=== PATIENT | male | born 1950 | race Caucasian/White ===

== ENCOUNTER → 2017-12-20 | Outpatient (CLI) | payer MEDICARE ==
[~2017-12-20] MED LIST: ASPI81TA81 PO; ATOR20TA15 PO; CLOP75TA PO; LOSA100T PO; METO25TA3 PO
--- NOTE | 2017-12-20 12:00 | RADRPT ---
EXAM DATE/TIME: 12/20/2017 11:41 [place] COMPARISON: No previous studies available for comparison. INDICATIONS : Evaluate for pneumonia, pneumothorax, or communicable disease. Pre op for left carotid bypass. MEDICAL HISTORY : Cardiovascular disease. SURGICAL HISTORY : Carotid endarterectomy. Coronary artery stent. ENCOUNTER: Initial ACUITY: 1 day PAIN SCORE: 0/10 LOCATION: Bilateral chest FINDINGS: PA and lateral views of the chest demonstrate the lungs to be symmetrically aerated without evidence of mass, infiltrate or effusion. The cardiomediastinal contours are unremarkable. Osseous structure s are intact. CONCLUSION: No acute disease. Harman Vickers MD on December 20, 2017 at 11:57 Board Certified Radiologist. This report was verified electronically.
[2017-12-20 12:11] LABS: BILIRUBIN, URINE NEG (NEG); BLOOD, URINE NEG (NEG); GLUCOSE,URINE NEG (NEG); KETONE, URINE NEG (NEG); NITRITE,URINE NEG (NEG); URINE COLOR LIGHT-YELLOW (YELLW/STRAW); URINE LEUKOCYTE ESTERASE NEG (NEG)
[2017-12-20 12:15] LABS: AUTOMATED NEUTROPHIL # 4.1 TH/MM3 (1.8-7.7); BASOPHIL % 0.6 % (0.0-2.0); EOSINOPHIL # 0.1 TH/MM3 (0-0.4); EOSINOPHIL % 2.1 % (0.0-4.0); HEMATOCRIT 40.8 % (39.0-51.0); HEMOGLOBIN 13.9 GM/DL (13.0-17.0); LYMPH % 23.7 % (9.0-44.0); LYMPHOCYTE # 1.5 TH/MM3 (1.0-4.8); MEAN CELL VOLUME 94.5 FL (80.0-100.0); MEAN CORPUSCULAR HEMOGLOBIN 32.2 PG (27.0-34.0); MEAN CORPUSCULAR HGB CONC 34.1 % (32.0-36.0); MEAN PLATELET VOLUME 7.1 FL (7.0-11.0); MONOCYTE # 0.6 TH/MM3 (0-0.9); NEUT % 64.6 % (16.0-70.0); PLATELET COUNT 279 TH/MM3 (150-450); RED BLOOD COUNT 4.32 MIL/MM3 (4.50-5.90); RED CELL DISTRIBUTION WIDTH 13.1 % (11.6-17.2); WHITE BLOOD COUNT 6.4 TH/MM3 (4.0-11.0)
[2017-12-20 12:41] LABS: INTERNATIONAL NORMALIZED RATIO 1.1 RATIO; PROTHROMBIN TIME - PATIENT 10.7 SEC (9.8-11.6)
[2017-12-20 12:54] LABS: BICARBONATE 31.4 MEQ/L (21.0-32.0); CALCIUM 9.4 MG/DL (8.5-10.1); CREATININE 1.06 MG/DL (0.60-1.30)
== END ==
LOC: CPRE 10:40
PROVIDERS: ATTEND Surgery
DX: Z01.811 Encounter for preprocedural respiratory examination (principal); Z01.812 Encounter for preprocedural laboratory examination; I77.9 Disorder of arteries and arterioles, unspecified
CPT/HCPCS: 36415; 71046; 80048; 81001; 85025; 85610; 85730

== ENCOUNTER 2017-12-26 05:31 | Inpatient (IN) | payer MEDICARE ==
[~2017-12-26] VITALS: Ht 182.9 cm; Wt 104.0 kg
[2017-12-26] VITALS (7 sets, daily range): BP systolic 136–161; BP diastolic 66–87; PULSE 68–84; RESP 16–20; TEMP 97.2–99; O2SAT 97–100
[2017-12-26] MEDS ORDERED: CHLORHEXIDINE GLUCONATE 2 % 1 PACK (2 CLOTHS) TOPICAL PRN (06:00)
[2017-12-26] MEDS ORDERED: SODIUM CHLORID 0.9% 500 ML IV PRN (06:00)
[2017-12-26] MEDS ORDERED: METOPROLOL TARTRATE 25 MG TAB PO PRN (06:00)
[2017-12-26] MEDS ORDERED: LACTATED RINGER'S 1000 ML IV PRN (06:00)
[2017-12-26] MEDS ORDERED: POVIDONE IODINE 5% (ANTISEPSIS KIT) 4 APPLICATIONS EACH NARE PRN (06:00)
--- NOTE | 2017-12-26 07:02 | PD.VS.PN ---
Pre-operative Note Pre-operative diagnosis: Recurrent L carotid stenosis after CEA Planned procedure: L CCA-ICA bypass Interval History: Pt has been feeling well, appropriately anxious for surgery but ready. No F/C or other symptoms that would preclude surgery. Labs: Hct 41 plt 279 cr 1.1 INR 1.1 Blood: T&S EKG: no acute ST changes Imaging: CTA ([facility]) frky 09/06/17 reviewed CXR negative for acute disease Orders: NPO Ancef 2g IV OCTOR Post-operative destination: CVICU Operative site marked: Yes Consent: Informed consent has been obtained from Néstor Salter. I have explained the procedure in detail and discussed the risks, benefits, and potential complications. All questions have been answered. Patient contact information: and son are here. Cell phone [phone] Negrito Chaudhry MD Dec 26, 2017 07:01
[2017-12-26] MEDS ORDERED: BUPIVACAINE HCL PF 0.5% 10 ML VIAL ONE (07:14)
[2017-12-26] MEDS ORDERED: HEPARIN SODIUM - IV 10,000 UNITS/10 ML VIAL ONE ×2 (07:14→08:45)
[2017-12-26] MEDS ORDERED: PROTAMINE SULFATE 50 MG/5 ML VIAL ONE ×2 (07:14→08:45)
[2017-12-26] MEDS ORDERED: HEPARIN-NS/PF INJ 500 ML ONE (07:14)
[2017-12-26] MEDS ORDERED: THROMBIN (TOPICAL) 20,000 UNIT SPRAY KIT ONE ×3 (07:14→09:41)
[2017-12-26] MEDS ORDERED: ceFAZolin 2 GM PREMIX 50 ML ONE (07:48)
--- NOTE | 2017-12-26 10:21 | HHI.PR ---
cc: Negrito Chaudhry MD Immediate Post Op Note Procedure Date: Dec 26, 2017 Pre Op Diagnosis: Recurrent LEFT carotid stenosis Post Op Diagnosis: Recurrent LEFT carotid stenosis Surgeon: Negrito Chaudhry Overcoil Stepper(s): Negrito Ocampo Procedure: L CCA-ICA bypass with 8mm PTFE Findings: scar tissue, high grade stenosis, c/w neointimal hyperplasia no neuro changes by EEG intraoperatively Additional Information: Pt awoke neuro intact Complications: none Specimen(s) removed: none for pathology Estimated blood loss: 150mL Anesthesia: General Drains: None Fluids: 1400mL IVF Urinary Output (mLs): 260 Patient to: CVICU Patient Condition: Good Implant/Devices: SEE IMPLANT LOG (if applicable) Date/Time of Procedure: SEE SURGICAL CARE RECORD Negrito Chaudhry MD Dec 26, 2017 10:21
[2017-12-26] MEDS ORDERED: HYDROmorphone HCL 2 MG TAB PO PRN (10:30)
[2017-12-26] MEDS ORDERED: SENNOSIDES 8.6 MG TAB PO PRN (10:30)
[2017-12-26] MEDS ORDERED: BISACODYL 10 MG SUPP RECTAL PRN (10:30)
[2017-12-26] MEDS ORDERED: MAGNESIUM HYDROXIDE SUSP 30 ML CUP PO PRN (10:30)
[2017-12-26] MEDS ORDERED: LACTULOSE SYRUP 20 GM/30 ML CUP PO PRN (10:30)
[2017-12-26] MEDS ORDERED: MIDAZOLAM HCL 2 MG/2 ML VIAL ONE (10:56)
[2017-12-26] MEDS ORDERED: PROPOFOL 200 MG/20 ML AMP IV ONE (12:00)
[2017-12-26] MEDS ORDERED: ONDANSETRON HCL 4 MG/2 ML VIAL IV ONE (12:00)
[2017-12-26] MEDS ORDERED: NORMOSOL R INJ 1,000 ML IV ONE (12:00)
[2017-12-26] MEDS ORDERED: DEXAMETHASONE SOD PHOS 4 MG/ML VIAL IV ONE (12:00)
[2017-12-26] MEDS ORDERED: SODIUM CHLOR 0.9% 250 ML INJ 250 ML IV ONE (12:00)
[2017-12-26] MEDS ORDERED: hydrALAZINE HCL 20 MG/ML VIAL IV ONE (12:00)
[2017-12-26] MEDS ORDERED: ESMOLOL HCL 100 MG/10 ML VIAL IV ONE (12:00)
[2017-12-26] MEDS ORDERED: GLYCOPYRROLATE 1 MG/5 ML SYRINGE IV PUSH ONE (12:00)
[2017-12-26] MEDS ORDERED: ROCURONIUM INJ 50 MG/5 ML SYRINGE IV PUSH ONE (12:00)
[2017-12-26] MEDS ORDERED: LIDOCAINE HCL 1% PF 5 ML SYRINGE OTHER ONE (12:00)
[2017-12-26] MEDS ORDERED: SODIUM CHLORID 0.9% 500 ML INJ 500 ML IV ONE (12:00)
[2017-12-26] MEDS ORDERED: ePHEDrine/NS 25 MG/5 ML SYRINGE IV ONE (12:00)
[2017-12-26] MEDS ORDERED: PHENYLEPH/NS 1000 MCG/10 ML SYR IV ONE (12:00)
[2017-12-26] MEDS ORDERED: PHENYLEPHRINE HCL 10 MG/ML VIAL IV ONE (12:00)
[2017-12-26] MEDS ORDERED: NEOSTIGMINE 5 MG/5 ML SYRINGE IV PUSH ONE (12:00)
[2017-12-26] MEDS ORDERED: RESP: ALBUTEROL 2.5 MG/IPRATROPIUM 0.5 MG NEB (PRN) NEB (12:45)
--- NOTE | 2017-12-26 12:54 | MB ---
cc: JOHN ELIZABETH M.D. DATE OF CONSULTATION 12/26/2017 DATE OF 1950 REASON FOR CONSULTATION Critical care management HISTORY OF PRESENT ILLNESS The patient is a 67-year-old male with a past medical history of hyperlipidemia, hypertension, coronary artery disease, recurrent left carotid stenosis. The patient underwent left ICA bypass by Dr. Chaudhry earlier today. The patient was transferred to CVICU and critical care medicine was consulted for critical care management. The patient had 150 mL estimated blood loss and was given 1.4 liters of IV fluids. His urine output 260 mL during surgery. When seen, the patient is awake and alert lying comfortable in bed in no acute distress. His current blood pressure 155/72 on the art line and saturation 98%. He denies any chest pain, shortness of breath or any GI symptoms. PAST MEDICAL HISTORY Significant for: 1. Hypertension 2. Hyperlipidemia 3. Coronary artery disease 4. Recurrent left carotid stenosis after a carotid endarterectomy. PAST SURGICAL HISTORY 1. Previous left CEA. 2. Previous coronary stent placement. 3. Previous knee surgery. ALLERGIES NO KNOWN DRUG ALLERGIES. SOCIAL HISTORY Nonsmoker, nondrinker. FAMILY HISTORY Noncontributory to current present illness. MEDICATIONS Reported medications at home include: 1. Plavix. 2. Atorvastatin. 3. Lopressor. 4. Losartan. 5. Aspirin. REVIEW OF SYSTEMS As per HPI. The rest of the review of systems is unremarkable PHYSICAL EXAM This is a 67-year-old male lying in bed in no acute distress. VITAL SIGNS: Temperature 98.4, pulse of 77, blood pressure 155/72, saturation 98%. HEENT: Atraumatic, normocephalic. Pupils equal, round and reactive to light and accommodation. Extraocular muscles intact. Conjunctivae pink. Nonicteric sclerae. Oral mucosa within normal. NECK: Supple. No JVD, adenopathy, thyromegaly. Trachea midline. CARDIOVASCULAR: Regular rate and rhythm. Normal S1-S2. No murmurs, rubs or gallops noted. PULMONARY: Bilateral equal air entry. No rales or wheezing. ABDOMEN: Soft, nontender, no distension. Positive bowel sounds. EXTREMITIES: No cyanosis, clubbing or edema. NEUROLOGIC: No focal sensory deficits. LABORATORY DATA Preop labs from December 20 showed WBC 6.4, hemoglobin 13.9, hematocrit 40, platelet count 279. Sodium 137, potassium 4.6, chloride 102, CO2 31, BUN 12, creatinine 1.06, glucose of 107, calcium 9.4. A chest x-ray from December 20 showed no acute disease. IMPRESSION 1. Recurrent left carotid stenosis status post left ICA bypass. 2. Previous left carotid endarterectomy. 3. Hypertension 4. Hyperlipidemia 5. History of coronary artery disease. RECOMMENDATIONS 1. Monitor neuro status and avoid any sedatives. 2. Continue with Dilaudid 0.2 mg q. 4-hour p.r.n. for pain control. 3. Oxygen p.r.n. to maintain sats above 92%. 4. Place on bronchodilators in the form of DuoNeb q. 6 p.r.n. for shortness of breath. 5. Monitor heart rate and blood pressure closely and maintain MAP greater than 65 mmHg. 6. Continue with cardiac meds which include aspirin 81 mg daily, Plavix 75 mg daily, Lopressor 25 mg daily, Cozaar 100 mg daily. 7. Monitor renal function I's and O's and electrolyte replacement as needed. 8. The patient is on p.o. heart healthy diet and Pepcid 20 mg b.i.d. 9. Monitor for signs of infections which include fever and WBC. 10. Panculture if spikes a fever. He was given a cephazolin dose early this morning preop. 11. Monitor CBC 12. Sliding scale insulin if needed for glycemic control. 13. DVT prophylaxis with SCD's in addition Lovenox 40 mg subcu daily was ordered to start tomorrow. Patient appears hemodynamically stable will sign off if no active issues overnight. MD NACHO Buenrostro/DELFINO /12:24 PM /12:40 PM JUSTIN
[2017-12-26] MEDS: FAMOTIDINE 20 MG TAB PO SCH (20:23)
[2017-12-26] MEDS: DOCUSATE SODIUM 50 MG/SENNA 8.6 MG TAB PO SCH (20:23)
[2017-12-27] VITALS (16 sets, daily range): BP systolic 139–184; BP diastolic 66–90; PULSE 64–96; RESP 16–19; TEMP 98.1–98.8; O2SAT 94–99
[2017-12-27] MEDS ORDERED: hydrALAZINE HCL 20 MG/ML VIAL IV PUSH PRN (03:15)
[2017-12-27 04:48] LABS: HEMATOCRIT 38.8 % (39.0-51.0); MEAN CORPUSCULAR HEMOGLOBIN 31.8 PG (27.0-34.0); MEAN CORPUSCULAR HGB CONC 33.5 % (32.0-36.0); MEAN PLATELET VOLUME 7.3 FL (7.0-11.0); PLATELET COUNT 257 TH/MM3 (150-450); RED BLOOD COUNT 4.09 MIL/MM3 (4.50-5.90)
[2017-12-27 05:09] LABS: BICARBONATE 29.1 MEQ/L (21.0-32.0); CREATININE 1.04 MG/DL (0.60-1.30)
--- NOTE | 2017-12-27 07:45 | PD.VS.PN ---
Subjective POD #: 1 Procedure(s): L carotid bypass for recurrent carotid stenosis after CEA Subjective/Hospital Course Pt doing well, slight headache but improving no swallowing difficulty and pain controlled Objective Vitals/I&O Date Time Temp Pulse Resp B/P (MAP) Pulse Ox O2 Delivery O2 Flow Rate FiO2 12/27/17 03:00 98.8 75 16 151/90 (110) 99 12/27/17 03:00 69 12/26/17 23:00 99.0 68 20 153/82 (105) 100 12/26/17 23:00 80 12/26/17 22:37 97 Nasal Cannula 2.00 12/26/17 19:15 98.4 84 16 155/87 (109) 98 12/26/17 19:00 76 12/26/17 15:10 79 12/26/17 15:09 97.5 79 19 161/72 (101) 98 12/26/17 11:15 97.2 70 17 136/66 (89) 98 12/27/17 12/27/17 12/27/17 07:00 15:00 23:00 Intake Total 960 ml Output Total 350 ml Balance 610 ml Exam: Sitting in chair neuro intact slight left tongue deviation with protrusion neck incision c/d/i Laboratory Laboratory Tests Test 12/27/17 03:27 White Blood Count 10.0 Red Blood Count 4.09 Hemoglobin 13.0 Hematocrit 38.8 Mean Corpuscular Volume 95.0 Mean Corpuscular Hemoglobin 31.8 Mean Corpuscular Hemoglobin Concent 33.5 Red Cell Distribution Width 13.0 Platelet Count 257 Mean Platelet Volume 7.3 Blood Urea Nitrogen 14 Creatinine 1.04 Random Glucose 127 Calcium Level 9.0 Sodium Level 137 Potassium Level 5.0 Chloride Level 101 Carbon Dioxide Level 29.1 Anion Gap 7 Estimat Glomerular Filtration Rate 72 Assessment and Plan Plan POD#1 s/p L CCA-ICA bypass 1. Transfer to CPCU 2. Normalize (Reg diet, reg meds) 3. OOB and ambulate Discharge Planning tomorrow (POD#2) Negrito Chaudhry MD Dec 27, 2017 07:45
--- NOTE | 2017-12-27 08:28 | MP ---
cc: AHMET CHAUDHRY MD DATE OF SURGERY: 12/26/2017 PREOPERATIVE DIAGNOSIS Left recurrent carotid stenosis. POSTOPERATIVE DIAGNOSIS Left recurrent carotid stenosis. PROCEDURE Left common carotid to internal carotid artery bypass with 8 mm PTFE. ATTENDING SURGEON Ahmet Chaudhry MD ANESTHESIA General. INDICATION Mr. Salter is a 67-year-old gentleman with a history of left carotid endarterectomy several years ago. On routine screening he was found to have recurrent stenosis and this was found to be upwards of 90% on a CT scan. He is taken to the operating room for resection and subsequent bypass. DESCRIPTION OF PROCEDURE Informed consent was obtained from the patient. He was taken to the operating room and placed supine on the operating table. Appropriate time-out was taken to ensure the patient's identity, operative site and planned procedure. The administration of 2 grams of Ancef were initiated prior to skin incision and will be discontinued after single preoperative dose. Everyone in the room agreed with time-out and we proceeded. His left neck was prepped and draped and with the appropriate neurological monitoring in place an incision was made along the previous incision along the anterior border of the sternocleidomastoid and carried down to subcutaneous tissue with electrocautery. The sternocleidomastoid was retracted posteriorly. There was dense scar tissue encountered but through tedious dissection we were able to navigate around the common carotid artery and a vessel loop was placed around this. We then dissected up along the carotid bulb to the distal ICA to the point distal to the previous endarterectomy patch and the distal internal carotid artery was then similarly encircled with a vessel loop. On medial aspect of the carotid we dissected the plane down and encircled external carotid artery as well. The patient was systemically heparinized and in conjunction with our neurological monitoring distal and proximal control of the internal and common carotid arteries were obtained with profunda clamps and another profunda clamp was placed in the external carotid artery. The common carotid artery was incised with 11 blade and this was extended with [place] scissors and then the entire common carotid artery was resected up to the internal carotid artery. The external carotid artery remained clamped. There were no neurological changes during this time. Both the common carotid artery and internal carotid artery was beveled and 8 mm PTFE was brought up on the field and sewn end-to-end distally with running 6-0 [place] suture and end-to-end proximally with running 5-0 [place] suture. At the completion the clamps were released and there was again no neurological changes. There was nice Doppler signal in the internal carotid artery. The patient is then heparinized prior to carotid clamping and the ACT is confirmed to be greater than 250. After releasing the clamps the heparin was reversed with protamine. The external carotid artery was oversewn with 4-0 Prolene. The wound was irrigated, made hemostatic and closed with 2-0 Polysorb, 3-0 Polysorb and 4-0 Monocryl. The sponge, needle counts were correct at the end of the case. I was present and scrubbed for the entire procedure. At the conclusion of the case the patient was awoken and was neurologically intact. MD IGNACIO Shirley/JUS /6:23 PM /7:57 AM
[2017-12-27] MEDS: CLOPIDOGREL 75 MG TAB PO SCH (08:41)
[2017-12-27] MEDS: DOCUSATE SODIUM 50 MG/SENNA 8.6 MG TAB PO SCH ×2 (08:41→20:21)
[2017-12-27] MEDS: ATORVASTATIN 20 MG TAB PO SCH (08:42)
[2017-12-27] MEDS: ASPIRIN 81 MG CHEW TAB PO SCH (08:42)
[2017-12-27] MEDS: FAMOTIDINE 20 MG TAB PO SCH ×2 (08:42→20:21)
[2017-12-27] MEDS: METOPROLOL TARTRATE 25 MG TAB PO SCH (08:42)
[2017-12-27] MEDS: LOSARTAN 50 MG TAB PO SCH (08:43)
[2017-12-27] MEDS ORDERED: ENOXAPARIN SODIUM 40 MG/0.4 ML SYRINGE SQ SCH (10:00)
[2017-12-27] MEDS: ENALAPRILAT 2.5 MG/2 ML VIAL IV PUSH PRN (12:48)
[2017-12-28] VITALS (9 sets, daily range): BP systolic 160–170; BP diastolic 78–88; PULSE 59–97; RESP 20; TEMP 98–98.2; O2SAT 97
[2017-12-28] MEDS: ENALAPRILAT 2.5 MG/2 ML VIAL IV PUSH PRN (02:21)
[2017-12-28] MEDS: LOSARTAN 50 MG TAB PO SCH (08:59)
[2017-12-28] MEDS: ASPIRIN 81 MG CHEW TAB PO SCH (08:59)
[2017-12-28] MEDS: FAMOTIDINE 20 MG TAB PO SCH (08:59)
[2017-12-28] MEDS: ATORVASTATIN 20 MG TAB PO SCH (08:59)
[2017-12-28] MEDS: METOPROLOL TARTRATE 25 MG TAB PO SCH (09:00)
[2017-12-28] MEDS: CLOPIDOGREL 75 MG TAB PO SCH (09:00)
[2017-12-28] MEDS: DOCUSATE SODIUM 50 MG/SENNA 8.6 MG TAB PO SCH (09:00)
--- NOTE | 2017-12-28 09:00 | PD.VS.PN ---
Subjective POD #: 2 Procedure(s): L carotid bypass for recurrent carotid stenosis after CEA Subjective/Hospital Course 67/M S/P Left carotid bypass POD 2 Pt sitting in chair alert in NAD Pt doing well Pt continues w/ a light headache (frontal/left) Pt w/o swallowing difficulty Mild left sided tongue deviation/facial droop noted Objective Vitals/I&O Date Time Temp Pulse Resp B/P (MAP) Pulse Ox O2 Delivery O2 Flow Rate FiO2 12/28/17 08:00 66 12/28/17 08:00 98.2 74 20 160/78 (105) 97 12/28/17 07:00 68 12/28/17 06:15 66 12/28/17 05:57 64 12/28/17 04:05 64 12/28/17 03:14 68 12/28/17 03:14 98.0 74 20 170/88 (115) 97 12/28/17 02:29 97 12/28/17 01:47 67 12/28/17 00:17 59 12/27/17 23:30 98.3 69 19 152/70 (97) 96 12/27/17 23:30 72 12/27/17 22:06 73 12/27/17 21:34 96 12/27/17 20:00 64 12/27/17 19:50 69 12/27/17 19:50 98.2 79 19 158/70 (99) 98 12/27/17 17:00 70 12/27/17 16:00 98.6 76 18 145/68 (93) 95 12/27/17 16:00 66 12/27/17 15:00 65 12/27/17 14:00 66 12/27/17 14:00 139/66 (90) 12/27/17 13:30 164/70 (101) 12/27/17 13:05 184/81 (115) 12/27/17 13:00 98.2 76 18 178/80 (112) 95 12/27/17 13:00 70 12/27/17 12:00 72 12/27/17 11:00 75 12/27/17 11:00 98.4 76 18 149/82 (104) 95 12/28/17 12/28/17 12/28/17 06:59 14:59 22:59 Intake Total 240 ml Balance 240 ml Exam: GENERAL: A&Ox3,NAD,GCS15 SKIN: Warm and dry/ incision to left side of neck intact and well approximated w /o R/D/S/O HEAD: Normocephalic. EYES: No scleral icterus. No injection or drainage. NECK: Supple, trachea midline. No JVD or lymphadenopathy. CARDIOVASCULAR: RRR w/o M/G/R RESPIRATORY: CTA equal bilaterally. No accessory muscle use. MUSCULOSKELETAL: No cyanosis, or edema. Palpable R/L radial pulses Assessment and Plan Plan POD#2 S/p L CCA-ICA bypass Plan Pt doing well and clear for D/C Arranged out pt f/u Discussed and reviewed post operative care and management w/ pt Questions answered Kasia Black NP [facility] [phone] Discharge Planning Today Kasia Black Dec 28, 2017 09:00
[2017-12-28] MEDS ORDERED: PERC5TAB12 PO (09:02)
--- NOTE | 2017-12-28 09:17 | PD.VS.DC ---
Discharge Summary Admission Date: Dec 26, 2017 at 05:31 Discharge Date: Dec 28, 2017 Admission Diagnosis: (1) Carotid artery disease without cerebral infarction Discharge Diagnosis: (1) Carotid artery bypass (2) Carotid artery disease without cerebral infarction ICD Codes: I77.9 - Disorder of arteries and arterioles, unspecified Brief History from admission Mr. Salter is a 67-year-old gentleman with a history of left carotid endarterectomy several years ago. On routine screening he was found to have recurrent stenosis and this was found to be upwards of 90% on a CT scan. Procedure(s): L carotid bypass for recurrent carotid stenosis after CEA Significant Findings GENERAL: A&Ox3,NAD,GCS15 SKIN: Warm and dry/ incision to left side of neck intact and well approximated w /o R/D/S/O HEAD: Normocephalic. EYES: No scleral icterus. No injection or drainage. NECK: Supple, trachea midline. No JVD or lymphadenopathy. CARDIOVASCULAR: RRR w/o M/G/R RESPIRATORY: CTA equal bilaterally. No accessory muscle use. MUSCULOSKELETAL: No cyanosis, or edema. Palpable R/L radial pulses Laboratory Tests Test 12/27/17 03:27 Red Blood Count 4.09 MIL/MM3 (4.50-5.90) Hematocrit 38.8 % (39.0-51.0) Random Glucose 127 MG/DL (74-106) Estimat Glomerular Filtration Rate 72 ML/MIN (>89) Hospital Course: Mr. Salter is a 67-year-old gentleman with a history of left carotid endarterectomy several years ago. On routine screening he was found to have recurrent stenosis and this was found to be upwards of 90% on a CT scan. Pt S/P Left carotid artery bypass POD #: 1 Pt doing well, slight headache but improving no swallowing difficulty and pain controlled Slight tongue deviation/facial droop present (LEFT) POD 2 Pt sitting in chair alert in NAD Pt doing well Pt continues w/ a light headache (frontal/left)- Improving Pt w/o swallowing difficulty Mild left sided tongue deviation/facial droop noted Pt clear for D/C Arranged out pt f/u in 4W with a surveillance carotid duplex Allergies Coded Allergies Type Severity Reaction Last Updated Verified No Known Allergies 12/26/17 No 12/26/17 12/26/17 12/27/17 12/27/17 12/28/17 12/28/17 05:59 17:59 05:59 17:59 05:59 17:59 Intake Total 4200 ml 2190 ml 240 ml Output Total 1775 ml 1800 ml Balance 2425 ml 390 ml 240 ml Intake Oral 300 ml 2190 ml 240 ml IV Total 800 ml Other 3100 ml Output Urine Total 1215 ml 1800 ml Estimated Blood Loss 300 ml Other 260 ml # Voids 4 # Bowel Movements 0 0 0 Laboratory Tests Test 12/27/17 03:27 White Blood Count 10.0 TH/MM3 Red Blood Count 4.09 MIL/MM3 Hemoglobin 13.0 GM/DL Hematocrit 38.8 % Mean Corpuscular Volume 95.0 FL Mean Corpuscular Hemoglobin 31.8 PG Mean Corpuscular Hemoglobin Concent 33.5 % Red Cell Distribution Width 13.0 % Platelet Count 257 TH/MM3 Mean Platelet Volume 7.3 FL Blood Urea Nitrogen 14 MG/DL Creatinine 1.04 MG/DL Random Glucose 127 MG/DL Calcium Level 9.0 MG/DL Sodium Level 137 MEQ/L Potassium Level 5.0 MEQ/L Chloride Level 101 MEQ/L Carbon Dioxide Level 29.1 MEQ/L Anion Gap 7 MEQ/L Estimat Glomerular Filtration Rate 72 ML/MIN Orders Procedure Category Date Status Time Type And Screen BBK 12/26/17 Complete 05:41 Lactated Ringer's MED 12/26/17 In Process 1000 Ml Inj (Lr 1000 M 06:00 Sodium Chlorid 0.9% MED 12/26/17 In Process 500 Ml Inj (Ns 500 M 06:00 Metoprolol Tartrate MED 12/26/17 In Process (Lopressor) 06:00 Povidone Iod 5% MED 12/26/17 In Process Antisepsis Kit 06:00 Chlorhexidine 2% MED 12/26/17 In Process Cloth (Chlorhexidine 06:00 Protamine Sulfate Inj MED 12/26/17 Complete (Protamine Sulfate 07:14 Heparin Inj (Heparin MED 12/26/17 Complete Inj) 07:14 Bupivacaine Pf 0.5% MED 12/26/17 Complete Inj (Marcaine Pf 0.5 07:14 Thrombin Top [place] MED 12/26/17 Complete (Thrombin Top [place]) 07:14 Heparin-Ns/Pf Inj MED 12/26/17 Complete (Heparin-Ns/Pf Inj) 07:14 Cefazolin 2 Gm Premix MED 12/26/17 Complete (Ancef 2 Gm Premix 07:48 Urinary Catheter BETTY 12/26/17 Complete Management 08:35 Heparin Inj (Heparin MED 12/26/17 Complete Inj) 08:45 Protamine Sulfate Inj MED 12/26/17 Complete (Protamine Sulfate 08:45 Thrombin Top [place] MED 12/26/17 Complete (Thrombin Top [place]) 09:40 Thrombin Top [place] MED 12/26/17 Complete (Thrombin Top [place]) 09:41 Admit To Inpatient ADMITTING 12/26/17 Transmitted Code Status CODE 12/26/17 Transmitted 10:21 Vital Signs (Adult) BETTY 12/26/17 Complete 10:21 Supervisory Aide / BETTY 12/26/17 In Process Telemetry 10:21 Activity Oob Ad Dary BETTY 12/26/17 In Process 10:[address] Alexander BETTY 12/26/17 In Process 10:21 Diet Heart Healthy DIET 12/26/17 Transmitted Lunch Basic Metabolic Panel LAB 12/27/17 Complete (Bmp) 06:00 Cbc No Diff, Includes LAB 12/27/17 Complete Plts 06:00 Aspirin Chew (Aspirin MED 12/27/17 In Process Chew) 09:00 Famotidine (Pepcid) MED 12/26/17 In Process 21:00 Oxycodone (Roxicodone) MED 12/26/17 In Process 10:30 Hydromorphone MED 12/26/17 In Process (Dilaudid) 10:30 Scd Bilateral/Knee BETTY 12/26/17 In Process High 10:21 Docusate Sodium-Senna MED 12/26/17 In Process (Bessy-Colace) 21:00 Magnesium Hydroxide MED 12/26/17 In Process Liq (Milk Of Magnesi 10:30 Sennosides (Senokot) MED 12/26/17 In Process 10:30 Bisacodyl Supp MED 12/26/17 In Process (Dulcolax Supp) 10:30 Lactulose Liq MED 12/26/17 In Process (Lactulose Liq) 10:30 Inpatient ADMITTING 12/26/17 Transmitted Certification Remove Urinary BETTY 12/26/17 In Process Catheter 17:00 ^ Other Nursing Orders BETTY 12/26/17 In Process 10:21 Atorvastatin (Lipitor) MED 12/27/17 In Process 09:00 Losartan (Cozaar) MED 12/27/17 In Process 09:00 Metoprolol Tartrate MED 12/27/17 In Process (Lopressor) 09:00 Am Admit Pre Op Care [facility] 12/26/17 Complete Fentanyl Inj MED 12/26/17 Complete (Fentanyl Inj) 10:56 Midazolam Inj (Versed MED 12/26/17 Complete Inj) 10:56 Enoxaparin Inj MED 12/27/17 In Process (Lovenox Inj) 10:00 Clopidogrel (Plavix) MED 12/27/17 In Process 09:00 Albuterol-Ipratropium MED 12/26/17 In Process Neb (Duoneb Neb) 12:45 Remove Urinary BETTY 12/26/17 In Process Catheter 15:54 ^ Arterial Line BETTY 12/26/17 In Process 15:54 Activity Oob Ad Dary BETTY 12/26/17 In Process 15:54 Hydralazine Inj MED 12/27/17 In Process (Apresoline Inj) 03:15 Enalaprilat Inj MED 12/27/17 In Process (Vasotec Inj) 03:15 ^ Other Nursing Orders BETTY 12/27/17 In Process 07:45 Attending Discharge DISCHARGE 12/28/17 Transmitted Order Vital Signs Date Time Temp Pulse Resp B/P (MAP) Pulse Ox O2 Delivery O2 Flow Rate FiO2 12/28/17 08:00 66 12/28/17 08:00 98.2 74 20 160/78 (105) 97 12/28/17 07:00 68 12/28/17 06:15 66 12/28/17 05:57 64 12/28/17 04:05 64 12/28/17 03:14 68 12/28/17 03:14 98.0 74 20 170/88 (115) 97 12/28/17 02:29 97 12/28/17 01:47 67 12/28/17 00:17 59 12/27/17 23:30 98.3 69 19 152/70 (97) 96 12/27/17 23:30 72 12/27/17 22:06 73 12/27/17 21:34 96 12/27/17 20:00 64 2/7/18 19:50 69 12/27/17 19:50 98.2 79 19 158/70 (99) 98 12/27/17 17:00 70 12/27/17 16:00 98.6 76 18 145/68 (93) 95 12/27/17 16:00 66 12/27/17 15:00 65 12/27/17 14:00 66 12/27/17 14:00 139/66 (90) 12/27/17 13:30 164/70 (101) 12/27/17 13:05 184/81 (115) 12/27/17 13:00 98.2 76 18 178/80 (112) 95 12/27/17 13:00 70 12/27/17 12:00 72 12/27/17 11:00 75 12/27/17 11:00 98.4 76 18 149/82 (104) 95 12/27/17 07:00 94 12/27/17 07:00 98.1 75 18 149/71 (97) 94 12/27/17 03:00 98.8 75 16 151/90 (110) 99 12/27/17 03:00 69 12/26/17 23:00 99.0 68 20 153/82 (105) 100 12/26/17 23:00 80 12/26/17 22:37 97 Nasal Cannula 2.00 12/26/17 19:15 98.4 84 16 155/87 (109) 98 12/26/17 19:00 76 12/26/17 15:10 79 12/26/17 15:09 97.5 79 19 161/72 (101) 98 12/26/17 11:15 97.2 70 17 136/66 (89) 98 12/26/17 07:20 98.4 75 20 184/100 (128) 99 Discharge Condition: Good Discharge Disposition: Discharge Home Discharge Instructions: May resume a heart healthy diet Activities as tolerated No driving for 10 days May shower then gently pat dry incision site No tub baths or swimming until your incision is fully healed Do not apply any creams or ointments to your incision as it may loosen the surgical glue Your were prescribed a narcotic pain medication which could cause constipation- Recommend taking with an over the counter stool softener No driving while taking your prescribed pain medication as it may cause drowsiness Call the office to report any increased redness, swelling or drainage (left neck incision) Any questions or concerns: Call [facility] at [facility] [phone] Kasia Black Dec 28, 2017 09:17
== END 2017-12-28 10:09 | disposition home or self-care (01) | DRG 39 ==
LOC: HSDI 05:31 → HCVI 11:00 → HCPC 12-27 12:37
PROVIDERS: ADMIT Surgery; ATTEND Surgery
PROC: 031 Upper Arteries, Bypass (ICD-10-PCS; principal; 2017-12-26 07:41)
DX: I65.22 Occlusion and stenosis of left carotid artery (principal); I10 Essential (primary) hypertension; E78.5 Hyperlipidemia, unspecified; I25.10 Atherosclerotic heart disease of native coronary artery without angina pectoris; Z95.5 Presence of coronary angioplasty implant and graft; Z87.891 Personal history of nicotine dependence
CPT/HCPCS: 80048; 85027; 86850; 86900; 86901; J0360; J0690; J1100; J1644; J1650; J2250; J2370; J2405; J2710; J2720; J3010; J7040; J7050; J7120